=== PATIENT | female | born 1960 | race Caucasian/White ===

== ENCOUNTER 2016-09-26 14:21 | Outpatient (CLI) | payer OTHER ==
--- NOTE | 2016-09-26 15:54 | DIAGNOSTIC IMAGING REPORT ---
PROCEDURE: DEXA BONE DENSITY STUDY CLINICAL INDICATION: HYPERPARATHYROIDISM COMPARISON: Bone scan 09/16/2013. FINDINGS: LUMBAR SPINE: Bone mineral density 0.797, T-score -2.3, osteopenia (previously bone mineral density 0.807, T-score -2.2, 1.2% bone mineral density loss). LEFT HIP: Bone mineral density 0.656, T-score -2.3, osteopenia (previously bone mineral density 0.661, T-score -2.3, 0.7% bone mineral density loss). LEFT FEMORAL NECK: Bone mineral density 0.572, T-score -2.5, osteoporosis (previously bone mineral density 0.607, T-score -2.2, 5.7% bone mineral density loss.) (T score greater or equal to -1.0 to: NORMAL) (T score from -1.1 to -2.4: OSTEOPENIA) (T score ess than or equal to -2.5: OSTEOPOROSIS) IMPRESSION: 1. Lumbar spine osteopenia with 1.2% bone mineral density loss 2. Left hip osteoporosis with femoral neck 5.7% bone mineral density loss
== END 2016-09-26 23:00 ==
LOC: XR SRH 14:21
DX: E21.3 Hyperparathyroidism, unspecified (principal); M85.88 Other specified disorders of bone density and structure, other site; M81.8 Other osteoporosis without current pathological fracture

== ENCOUNTER → 2016-10-31 | Outpatient (CLI) | payer OTHER ==
--- NOTE | 2016-10-31 14:56 | DIAGNOSTIC IMAGING REPORT ---
PROCEDURE: CT THORAX WITHOUT CONTRAST INDICATION: Follow-up pulmonary nodules. TECHNIQUE: Noncontrast axial images were obtained of the chest with coronal and sagittal reformations. COMPARISON: CT thorax 04/16/2016. FINDINGS: Hyperinflation and mild emphysema. 3 mm right lower lobe nodule, previously 5 mm (image 38). 4 mm right lower lobe nodule (image 51), and two 3 - 4 mm left lower lobe nodules (image 39) , for left lower lobe nodules three - 6 mm (images 43 - 45) and 3 mm left lower lobe nodule (image 55), all stable. There are no new pulmonary nodules. There is no adenopathy or effusion. Median sternotomy. Aortic valvuloplasty. Extensive coronary atherosclerosis. Heart size is normal. Stable hypodense liver lesions consistent with previously described hemangiomas. Cholecystectomy. Calcified splenic granulomas and stable splenic low-density lesions. Partially visualized 4 cm ventral hernia left of midline containing fat. IMPRESSION: 1. Emphysema 2. Stable multiple sub 6 mm bilateral pulmonary nodules, likely post inflammatory/granulomas. Recommend follow-up CT scan in 1 year. 3. Aortic valvuloplasty 4. Stable hypodense hepatic lesions consistent with previously described hemangiomas 5. Stable hypodense splenic lesion suggestive of possible additional hemangiomas 6. Cholecystectomy
== END ==
LOC: CT SRH 10:30
DX: J43.9 Emphysema, unspecified (principal); Z79.01 Long term (current) use of anticoagulants; K76.9 Liver disease, unspecified; Z95.2 Presence of prosthetic heart valve